=== PATIENT | female | born 1995 | race Caucasian/White ===

== ENCOUNTER → 2016-12-28 | Outpatient (CLI) | payer OTHER ==
--- NOTE | 2016-12-28 16:08 | KCIC ---
MR of the left shoulder Indication: Left shoulder pain after a fall 2 weeks ago. Technique: Standard multiplanar sequences are obtained. Findings: Acromioclavicular joint:Intact. Rotator cuff: No rotator cuff tear. No significant subacromial subdeltoid bursal effusion. Glenohumeral cartilage: No acute defect or advanced DJD. Fluid: No significant joint effusion. Labrum: No evidence of labral tear or para labral cyst. Biceps tendon: Intact Bones: No lesion or acute fracture. Soft tissue: No acute findings. Impression: No evidence of internal derangement or acute abnormality. Electronically signed by: Hector Crespo MD (12/28/2016 4:04 PM) [facility]
== END | disposition home or self-care (01) ==
LOC: KCIC MRI 15:10
PROVIDERS: ATTEND Physician Assistant
DX: M25.512 Pain in left shoulder (principal); W19.XXXD Unspecified fall, subsequent encounter
CPT/HCPCS: 73221